=== PATIENT | female | born 1960 | race Two or more races ===

== ENCOUNTER 2023-01-24 03:45 | Emergency (ER) | payer OTHER, MEDICAID ==
[~2023-01-24] VITALS: Ht 165.1 cm; Wt 118.8 kg
[2023-01-24 04:26] VITALS: BP 129/78; PULSE 76; RESP 20; TEMP 98.1
[2023-01-24] MEDS ORDERED: KETOROLAC TROMETH 60MG/2ML VIAL IM ONE (05:30)
[2023-01-24] MEDS ORDERED: CYCL-614 PO (05:34)
[2023-01-24] MEDS ORDERED: IBUP1TAB4 PO (05:34)
[2023-01-24 05:45] VITALS: O2SAT 97
== END 2023-01-24 06:05 | disposition home or self-care (01) ==
LOC: ER 03:45
DX: M54.42 Lumbago with sciatica, left side (principal); I10 Essential (primary) hypertension; E11.9 Type 2 diabetes mellitus without complications; G89.29 Other chronic pain; Z79.1 Long term (current) use of non-steroidal anti-inflammatories (NSAID); Z79.899 Other long term (current) drug therapy; Z88.0 Allergy status to penicillin; Z88.5 Allergy status to narcotic agent
CPT/HCPCS: 96372; 99283; J1885